=== PATIENT | male | born 2000 | race Caucasian/White ===

== ENCOUNTER 2022-04-05 10:19 | Emergency (ER) | payer MEDICAID ==
[~2022-04-05] VITALS: Ht 182.9 cm; Wt 86.0 kg
[2022-04-05 10:24] VITALS: BP 155/82
[2022-04-05] MEDS ORDERED: NAPR-681 PO (11:25)
== END 2022-04-05 11:43 | disposition home or self-care (01) ==
LOC: ER 10:19
DX: S00.93XA Contusion of unspecified part of head, initial encounter (principal); R07.89 Other chest pain; Y04.0XXA Assault by unarmed brawl or fight, initial encounter; Y93.89 Activity, other specified; Y92.89 Other specified places as the place of occurrence of the external cause; Y99.8 Other external cause status
CPT/HCPCS: 71045; 93005; 99285